=== PATIENT | male | born 1960 | race Caucasian/White ===

== ENCOUNTER 2020-08-13 09:32 | Observation (INO) ==
[2020-08-13] MEDS ORDERED: SODIUM CHLORIDE 0.9% 1,000 ML IV STA (09:58)
[2020-08-13] MEDS ORDERED: ASPIRIN 325 MG TABLET PO STA (09:58)
[2020-08-13] MEDS ORDERED: ENOXAPARIN 100 MG/ML SYRINGE SUBCUT STA (10:05)
[2020-08-13 10:06] LABS: Basophils # 0.1 10*3/uL (0.0-0.2); Basophils % 0.7 % (0.0-0.8); Eosinophils # 0.1 10*3/uL (0.0-0.87); Eosinophils % 1.5 % (0.00-10.9); Hematocrit 47.2 VOL% (42.0-52.0); Hemoglobin 15.4 GM/DL (14.0-18.0); Immature Granulocytes % 0.3 %; Immature Granulocytes Absolute 0.02 #; Lymphocytes # 2.5 10*3/uL (1.4-4.0); Lymphocytes % 33.9 % (21.2-54.2); Mean Corpuscular HGB Conc 32.6 GM/DL (32-36); Mean Corpuscular Volume 88.9 FL (87-102); Mean Platelet Volume 8.9 FL (9.6-12.0); Monocytes % 6.3 % (1.7-12.7); Neutrophils % 57.3 % (38.7-73.9); Platelet Count 163 T/CUMM (130-400); Red Blood Count 5.31 MC/CUMM (3.8-5.5); Red Cell Distribution Width 12.5 % (9.3-17.3); White Blood Count 7.4 T/CUMM (4-12)
[2020-08-13] MEDS ORDERED: NITROGLYCERIN 2% OINT 1 INCH/GM PACK TOP STA (10:07)
[2020-08-13 10:19] LABS: Partial Thromboplastin Time 22.6 SECS (23.9-33.8)
[2020-08-13 10:21] LABS: Alanine Aminotransferase 27 U/L (16-61); Albumin 3.9 G/DL (3.4-5.0); Alkaline Phosphatase 69 U/L (45-117); Aspartate Amino Transferase 16 U/L (0-37); Bilirubin,Total < 0.39 MG/DL (0.2-1.0); Blood Urea Nitrogen 21 MG/DL (7-18); Calcium 8.8 MG/DL (8.5-10.1); Carbon Dioxide 30 MMOL/L (21-32); Estimated Glom Filtration Rate 63 ML/MIN; Glucose 97 MG/DL (74-106); Osmolality,Calculated 279.5 MOS/KG (273-304); Potassium 4.2 MMOL/L (3.5-5.1); Sodium 139 MMOL/L (136-145); Total Protein 6.8 G/DL (6.4-8.2)
[2020-08-13] MEDS ORDERED: ZALEPLON 5 MG CAPSULE PO PRN (11:35)
[2020-08-13] MEDS ORDERED: MORPHINE 4 MG/1 ML VIAL IV PRN (11:35)
[2020-08-13] MEDS ORDERED: POTASSIUM CHLORIDE 20 MEQ TABLET PO PRN (11:35)
[2020-08-13] MEDS ORDERED: MAGNESIUM SULF RIDER 4 GM/100 ML PREMIX IV PRN (11:35)
[2020-08-13] MEDS ORDERED: MAGNESIUM SULF RIDER 2 GM/50 ML PREMIX IV PRN (11:35)
[2020-08-13] MEDS ORDERED: ONDANSETRON 4 MG/2 ML VIAL IV PRN (11:35)
[2020-08-13] MEDS ORDERED: DOCUSATE/SENNA 50-8.6 MG TABLET PO PRN (11:38)
[2020-08-13] MEDS ORDERED: NITROGLYCERIN SL 0.4 MG TABLET SL PRN (11:38)
[2020-08-13] MEDS ORDERED: traMADol 50 MG TABLET PO PRN (11:38)
[2020-08-13] MEDS ORDERED: SODIUM CHLORIDE 0.9% 1,000 ML IV SCH (12:00)
[2020-08-13 12:09] LABS: Bilirubin,Urine Negative (Negative); Blood, Urine Small mg/dL (Negative); Glucose,Urine (UA) Negative (Negative); Ketones,Urine Negative (Negative); Mucus,Urine Occasional /LPF (Occasional); Nitrite,Urine Negative (Negative); Protein,Urine Negative; RBC,Urine <1 /HPF (0-4); Squamous Epithelial Cell,Urine Occasional /HPF (0-10); Urine Appearance CLEAR (Clear); Urine Color Straw (Yellow); Urine Specific Gravity 1.032 (1.001-1.035); Urine Urobilinogen < 2.0 EU/DL (0.2-1.0)
[2020-08-13 12:22] LABS: Barbiturates Screen,Urine Negative (Negative); Benzodiazepines Screen,Urine Negative (Negative); Cannabinoid Screen,Urine Negative (Negative); Opiate Screen,Urine Negative (Negative); Phencyclidine Screen,Urine Negative (Negative)
[2020-08-13] MEDS ORDERED: KETOROLAC 30 MG/1 ML VIAL IV ONE (17:34)
[2020-08-13] MEDS ORDERED: FLUTICASONE 50 MCG NASAL SPRAY 16 GM BOTTLE BOTH NARES SCH (17:39)
[2020-08-13] MEDS ORDERED: FEXOFENADINE 180 MG TABLET PO SCH (17:39)
[2020-08-13] MEDS ORDERED: ACETAMINOPHEN 500 MG TABLET PO SCH (18:00)
[2020-08-13 21:44] VITALS: BP 125/71
[2020-08-14] MEDS ORDERED: EZETIMIBE 10 MG TABLET PO SCH (09:00)
[2020-08-14] MEDS ORDERED: PANTOPRAZOLE 40 MG TABLET PO SCH (09:00)
[2020-08-14] MEDS ORDERED: ASPIRIN EC 81 MG TABLET PO SCH (09:00)
== END 2020-08-13 21:30 | disposition left against medical advice (07) ==
LOC: N.ED 09:32 → N.EDINP 09:32 → N.TELES 17:02
PROVIDERS: ADMIT Internal Medicine Cardiovascular Disease; ATTEND Internal Medicine Cardiovascular Disease